=== PATIENT | female | born 1995 | race African-American/Black ===

== ENCOUNTER 2022-08-14 04:21 | Emergency (ER) | payer BC ==
[~2022-08-14] VITALS: Ht 172.7 cm; Wt 65.8 kg
[2022-08-14 04:52] VITALS: BP_SYST 135
--- NOTE | 2022-08-14 04:56 | NUR ---
Pt from home states that anxiety started around 0000. Pt reports "stomach ache" and feeling SOB. Pt 98% on RA, speaking in full sentences and even and unlabored resp. Pt tachycardic at 128. made aware. Pt waiting outside because she does not "like being in closed spaces."
[2022-08-14] MEDS ORDERED: ONDANSETRON HCL 4 MG/2 ML VIAL IVP ONE (06:30)
[2022-08-14] MEDS ORDERED: LORazepam 2 MG/ML VIAL IVP ONE (06:30)
[2022-08-14] MEDS ORDERED: NACL 0.9% 1,000 ML IV ONE (06:30)
--- NOTE | 2022-08-14 07:10 | NUR ---
REPORT AND CARE ENDORSED OVER TO GINNY EUGENE.
--- NOTE | 2022-08-14 07:30 | NUR ---
RECEIVED PT FROM GINNY CARDENAS. PT IS UP PACING IN ROOM WITH FATHER AT BEDSIDE. PT BIBS FOR C/O ANXIETY AND STOMACH PAIN. RESP E/U. ON R/A. DISTAL PULSES STRONG. SKIN INTACT. NO S/S OF DISTRESS NOTED. VSS.
--- NOTE | 2022-08-14 07:35 | NUR ---
PT REFUSED IV INSERTION AND ORDERED MEDICATION. SHE STATED SHE FEELS BETTER NOW AND DOES NOT HAVE STOMACH PAIN AND NAUSEA AT THIS TIME.
[2022-08-14] MEDS ORDERED: HYDR50TA61 PO (07:52)
--- NOTE | 2022-08-14 08:05 | NUR ---
DR. NUÑEZ AT BEDSIDE DISCUSSING POC.
[2022-08-14 08:07] VITALS: BP_SYST 127
--- NOTE | 2022-08-14 08:10 | NUR ---
Patient given written and verbal discharge instructions and verbalizes understanding. ER MD discussed with patient the results and treatment provided. Patient in stable condition. ID arm band removed. IV catheter removed intact and dressing applied, no active bleeding. Rx of HYDROXYZINE given. Patient educated on pain management and to follow up with PMD. Pain Scale 0/10. Opportunity for questions provided and answered. Medication side effect fact sheet provided. EXCUSED WORK FORM GIVEN.
[2022-08-14] MEDS ORDERED: LORazepam 1 MG TABLET PO ONE (08:30)
--- NOTE | 2022-08-14 08:42 | NUR ---
PT HAS C/O BEING AFRAID ANXIETY WILL RETURN BEFORE SHE GET HER MEDICATION FROM PHARMACY. PT GIVEN ATIVAN 10MG PO AND WILL DISCHARGE.
== END 2022-08-14 08:07 | disposition home or self-care (01) ==
LOC: SED 04:21
DX: F41.0 Panic disorder [episodic paroxysmal anxiety] (principal); Z79.899 Other long term (current) drug therapy
CPT/HCPCS: 99283